=== PATIENT | male | born 1960 | race Caucasian/White ===

== ENCOUNTER → 2016-12-08 | Outpatient (CLI) | payer OTHER ==
--- NOTE | 2016-12-08 11:35 | ECHOF ---
Referral Reason:R07.1 chest pain MEASUREMENTS -------- HEIGHT: 182.9 cm WEIGHT: 104.3 kg BP: RVIDd: 3.8 cm (< 3.3) IVSd: 1.1 cm (0.6 - 1.1) LVIDd: 5.3 cm (3.9 - 5.3) LVPWd: 0.9 cm (0.6 - 1.1) IVSs: 1.3 cm LVIDs: 3.7 cm LVPWs: 1.5 cm LA Diam: 3.5 cm (2.7 - 3.8) LAESV Index (A-L): 23.28 ml/m Ao Diam: 3.3 cm (2.0 - 3.7) AV Cusp: 2.4 cm (1.5 - 2.6) LA Diam: 4.0 cm (2.7 - 3.8) MV EXCURSION: 22.213 mm (> 18.000) MV EF SLOPE: 114 mm/s (70 - 150) EPSS: 0.7 cm MV E Nakul: 0.65 m/s MV DecT: 236 ms MV A Nakul: 0.59 m/s MV E/A Ratio: 1.12 FINDINGS -------- Sinus rhythm. This was a technically good study. There is mild concentric left ventricular hypertrophy. Overall left ventricular systolic function is low-normal with, an EF between 50 - 55 %. The right ventricle is normal in size. Normal LA size by volume 22+/-6 ml/m2. The right atrial size is normal. There is mild aortic valve sclerosis. There is no evidence of aortic regurgitation. Mild mitral annular calcification present. Mild mitral regurgitation is present. Mild tricuspid regurgitation present. Right ventricular systolic pressure is normal at < 35 mmHg. There is no evidence of pulmonary hypertension. There is no pulmonic regurgitation present. The aortic root size is normal. There is no pericardial effusion. CONCLUSIONS -------- 1. There is mild concentric left ventricular hypertrophy. 2. Overall left ventricular systolic function is low-normal with, an EF between 50 - 55 %. 3. There is mild aortic valve sclerosis. 4. Mild mitral annular calcification present. 5. Mild mitral regurgitation is present. 6. Mild tricuspid regurgitation present. 7. Right ventricular systolic pressure is normal at < 35 mmHg. 8. There is no evidence of pulmonary hypertension. PACKAGE LIFT OPERATOR: Katina Holden RDCS
--- NOTE | 2016-12-08 11:39 | EST ---
DATE OF SERVICE: 12/08/2016 AGE: 56Y SEX: M HT: 5'11" WT: 230 lbs. Protocol Cecil: X Other: Cardiolite Stress Stage: 3 Dur. of Exercise: 9:00 *Heart Rate Blood Pressure *Rest: 68 Rest: 106/78 * *Max. Achieved: 145 Maximum BP: 192/79 85% PMHR: 141 100% PMHR: 166 *METS: 10.3 INDICATIONS: Chest pain. MEDICATIONS: Flexeril, [place], Flonase, probiotics. CLINICAL INFORMATION: History of chest pain on and off, family history of coronary artery disease. Resting ECG shows sinus rhythm, rate of 68 beats per minute, DE interval of 0.16, QRS of 0.08, normal ST-T waves. Utilizing a standard Cecil protocol, a symptom-limited treadmill test was performed. Patient exercised for total of 9 minutes, attained a peak heart rate of 145 beats per minute, which is approximately 87% predicted maximal heart rate with some mild chest pain without any EKG changes or ST segment deviations or cardiac arrhythmias. IMPRESSION: 1. Baseline rhythm is sinus with normal DE intervals, normal QRS, normal ST-T waves. 2. Negative exercise treadmill test at 87% predicted maximum heart rate. Patient did complain of mild chest pain without any ST segment deviations, subsided spontaneously. 3. Nuclear scintigrams to follow from Radiology Department.
--- NOTE | 2016-12-08 11:59 | NM ---
EXAMINATION TYPE: NM stress cardiolite complete DATE OF EXAM: 12/08/2016 10:38 AM COMPARISON: NONE HISTORY: 56-year-old male with chest pain TECHNIQUE: After the intravenous administration of 11 mCi Tc 99m Sestamibi - Rest images obtained 45 minutes post injection. The patient exercised using a KAY protocol and 1 minute prior to peak ex ercise was injected with 27.5 mCi Tc 99m Sestamibi - Stress images obtained 10 minutes post injection . FINDINGS: Targeted heart rate was achieved during performance of the study. Review of stress and rest SPECT jagjit ges demonstrates no distinct perfusion abnormality. Gated analysis shows normal wall motion with an estimated left ventricular ejection fraction of 64 %. TID is calculated at 0.89, within normal limit s. Polar maps are normal. IMPRESSION: No scintigraphic evidence for reversible ischemia
== END | disposition home or self-care (01) ==
LOC: RADNMMAIN 08:40
PROVIDERS: ATTEND Family Medicine
DX: R07.1 Chest pain on breathing (principal)
CPT/HCPCS: 93017; 93306; 78452; A9500

== ENCOUNTER 2020-01-27 07:48 | Day surgery (SDC) | payer MEDICARE, OTHER ==
[2020-01-22 16:16] VITALS: BMI 32.1
[~2020-01-27 07:48] MED LIST: LACTATED RINGERS 1,000 ML IV SCH
[2020-01-27 08:08] VITALS: TEMP 97.6
[2020-01-27] MEDS ORDERED: PROPOFOL 10 MG/ML 20 ML VIAL IV ONE (08:52)
[2020-01-27] MEDS ORDERED: LIDOCAINE 1% INJ 10MG/ML (20 ML MDV) ONE (08:52)
--- NOTE | 2020-01-27 09:01 | P.GSHP ---
History of Present Illness H&P Date: 01/27/20 Chief Complaint: GERD, constipation This a 59-year-old male referred from Dr. Jovel. Patient issues with GERD and contents patient. He presents today for EGD and colonoscopy. Past Medical History Past Medical History: GERD/Reflux Additional Past Medical History / Comment(s): BACK ISSUES History of Any Multi-Drug Resistant Organisms: None Reported Past Surgical History: Cholecystectomy, Hernia Repair Additional Past Surgical History / Comment(s): HIATAL HERNIA REPAIR Past Anesthesia/Blood Transfusion Reactions: No Reported Reaction Smoking Status: Never smoker - Past Family History Mother Family Medical History: No Reported History Medications and Allergies Home Medications Medication Instructions Recorded Confirmed Type Cyclobenzaprine [Flexeril] 10 mg PO TID PRN 02/22/16 01/27/20 History HYDROcodone/APAP 10-325MG [[place] 1 tab PO Q4HR PRN 02/22/16 01/27/20 History 10-325] Dicyclomine [Bentyl] 20 mg PO TID PRN 03/02/16 01/27/20 History Ibuprofen [Motrin] 800 mg PO DAILY PRN 01/22/20 01/27/20 History Allergies Allergy/AdvReac Type Severity Reaction Status Date / Time No Known Allergies Allergy Verified 01/27/20 08:09 Surgical - Exam Vital Signs Temp Pulse Resp BP Pulse Ox 97.6 F 69 16 110/73 98 01/27/20 08:07 01/27/20 08:07 01/27/20 08:07 01/27/20 08:07 01/27/20 08:07 - General well developed, well nourished, no distress - Eyes PERRL - ENT normal pinna - Neck no masses - Respiratory normal expansion - Cardiovascular Rhythm: regular - Abdomen Abdomen: soft, non tender Assessment and Plan Assessment: GERD, constipation. We'll perform EGD and colonoscopy.
[2020-01-27 09:43] VITALS: BP 116/77; PULSE 90; RESP 17
--- NOTE | 2020-02-11 09:44 | P.OP ---
Date of Procedure: 01/27/20 Preoperative Diagnosis: GERD Constipation Postoperative Diagnosis: Antral gastritis Esophagitis Possible mild proctitis Procedure(s) Performed: EGD Colonoscopy Anesthesia: MAC Surgeon: Jim Mao Pathology: other (Antrum, esophagus, rectum) Condition: stable Disposition: PACU Description of Procedure: The patient's placed on the endoscopy table lateral position. He received IV sedation. The gastroscope was oropharynx and passed in the esophagus into the stomach. Scope was then placed through the pylorus. The first and second portion of the duodenum appeared normal. The scope was then brought back the antrum and this appeared mildly inflamed. A biopsies performed. The scope was retroflexed and remainder of the stomach appeared normal. The GE junction was at 40 cm the proximal esophagus. Normal. Scope was withdrawn for patient. s. The distal esophagus appeared mildly inflamed and a biopsies performed. The proximal esophagus was normal. Scope was withdrawn for patient. Next digital rectal exam was performed which revealed some minimal internal hemorrhoids. Flexible colonoscope was then placed patient anus and passed throughout the entire colon. The ileocecal valve was visually is. The cecum, ascending and transverse colon appeared normal. The descending and sigmoid colon appeared normal. In the rectum appeared to be some minimal inflammation this area is biopsied. The scope was withdrawn for patient.
== END 2020-01-27 10:11 | disposition home or self-care (01) ==
LOC: ORWHC2ENDO 07:48
PROVIDERS: ATTEND Surgery
DX: K29.50 Unspecified chronic gastritis without bleeding (principal); K21.0 Gastro-esophageal reflux disease with esophagitis; K62.89 Other specified diseases of anus and rectum; K64.8 Other hemorrhoids; K59.00 Constipation, unspecified; Z90.49 Acquired absence of other specified parts of digestive tract; Z98.890 Other specified postprocedural states; Z87.19 Personal history of other diseases of the digestive system
CPT/HCPCS: 88305; 45380; 43239; J2001; J2704

== ENCOUNTER → 2020-07-20 | Outpatient (CLI) | payer MEDICARE ==
--- NOTE | 2020-07-21 07:00 | US ---
EXAMINATION TYPE: US axilla RT DATE OF EXAM: 07/20/2020 COMPARISON: CT 2016 CLINICAL HISTORY: M79.661 PAIN IN RT UPPER ARM. Intermittent pain in upper right flank Right flank: superficial 0.4cm area with posterior shadowing seen at patient's area of pain IMPRESSION: Shadowing 3 to 4 mm subcutaneous lesion could reflect calcification or foreign body. No obvious subcutaneous lesion noted on 2016 CT. Has there been history of interval penetrating trauma o r injury? Repeat CT may be beneficial.
== END | disposition home or self-care (01) ==
LOC: RADUSWWP 16:11
PROVIDERS: ATTEND Family Medicine
DX: L98.9 Disorder of the skin and subcutaneous tissue, unspecified (principal)
CPT/HCPCS: 76705

== ENCOUNTER 2020-09-25 18:26 | Emergency (ER) | payer MEDICARE ==
[2020-09-25] MEDS ORDERED: SODIUM CHLORIDE 0.9% 1,000 ML IV ONE (20:31)
[2020-09-25] MEDS ORDERED: HYDROmorphone 1 MG/ML 1 ML SYRINGE IVP STA (20:33)
[2020-09-25] MEDS ORDERED: ONDANSETRON 4 MG/2 ML VIAL IVP STA (20:33)
[2020-09-25 20:41] LABS: Basophils % (A) 0 %; Eosinophils # (A) 0.1 k/uL (0-0.7); Eosinophils % (A) 1 %; HCT 49.2 % (39.0-53.0); HGB 15.8 gm/dL (13.0-17.5); Lymphocytes % (A) 11 %; MCH 30.8 pg (25.0-35.0); MCHC 32.2 g/dL (31.0-37.0); MCV 95.8 fL (80.0-100.0); Mean Platelet Volume 6.6; Monocytes # (A) 0.2 k/uL (0-1.0); Monocytes % (A) 2 %; Neutrophils # (A) 8.3 k/uL (1.3-7.7); Neutrophils % (A) 86 %; Platelet Count 295 k/uL (150-450); RBC 5.14 m/uL (4.30-5.90); RDW 13.1 % (11.5-15.5); WBC 9.7 k/uL (3.8-10.6)
[2020-09-25] MEDS ORDERED: SODIUM CHLORIDE 0.9% 1,000 ML IV SCH (20:45)
[2020-09-25 20:52] LABS: INR 0.9 (<1.2); Partial Thromboplastin Time 22.7 sec (22.0-30.0); Prothrombin Time 9.7 sec (9.0-12.0)
[2020-09-25 20:54] LABS: ALT 20 U/L (4-49); AST 27 U/L (17-59); African American GFR (CKD) >90 (>60 ml/min/1.73 sqM); Albumin 4.9 g/dL (3.5-5.0); Alkaline Phosphatase 96 U/L (38-126); Amylase 49 U/L (30-110); Anion Gap 13 mmol/L; Blood Urea Nitrogen 21 mg/dL (9-20); Calcium 10.9 mg/dL (8.4-10.2); Carbon Dioxide 19 mmol/L (22-30); Chloride 107 mmol/L (98-107); Glucose 101 mg/dL (74-99); Lipase 27 U/L (23-300); Non-African American GFR(CKD) 89 (>60 ml/min/1.73 sqM); Potassium 4.2 mmol/L (3.5-5.1); Sodium 139 mmol/L (137-145); Total Bilirubin 1.3 mg/dL (0.2-1.3); Total Protein 7.8 g/dL (6.3-8.2)
--- NOTE | 2020-09-25 21:22 | CT ---
EXAMINATION TYPE: CT abdomen pelvis w con DATE OF EXAM: 09/25/2020 COMPARISON: 03/02/2016 HISTORY: Abdominal pain post colonoscopy CT DLP: 1333.2 mGycm Automated exposure control for dose reduction was used. CONTRAST: Performed with IV Contrast, patient injected with 100 mL of Isovue 300. Lung bases are clear. There is no pleural effusion. Heart size is normal. There is no pericardial eff usion. There is some fatty infiltration of the liver. Spleen pancreas stomach appear intact. Bile suhail ts are not dilated. There are clips from cholecystectomy. There is no adrenal mass. There is large right-sided renal cortical cysts that measures 7 cm. There i s no hydronephrosis. Delayed images show normal renal excretion. Ureters are not dilated. There is no retroperitoneal adenopathy. Bladder distends smoothly. There is no inguinal hernia. There is no free fluid in the abdomen and pelvis. There is no mesenteric edema. There is no sign of a bowel obstructi on. Appendix is posterior and appears normal. Lumbar vertebra appear intact. There is no compression fracture. Bony pelvis appears intact. IMPRESSION: No acute abnormality of the abdomen pelvis. Right renal cyst increased compared to old exam. No free air.
--- NOTE | 2020-09-25 21:34 | ED ---
Abdominal Pain HPI - General Source: patient, RN notes reviewed, old records reviewed Mode of arrival: ambulatory Limitations: no limitations <Laenn Delgado - Last Filed: 09/26/20 10:42> <Isadora Alvarez - Last Filed: 10/03/20 00:33> - General Chief Complaint: Abdominal Pain Stated Complaint: Post Op Colonoscopy Pain Time Seen by Provider: 09/25/20 20:04 - History of Present Illness Initial Comments: 59 year old male presents with diffuse abdominal pain after EGD and colonoscopy today by Dr. Mao. Pt reports after colonoscopy in [place] pt had similiar pains. Pt complains of nausea. Pt reports to passing gas after procedure. Pt arrives moaning and writhing in pain. (Leann Delgado) - Related Data Home Medications Medication Instructions Recorded Confirmed Cyclobenzaprine [Flexeril] 10 mg PO TID PRN 02/22/16 09/25/20 HYDROcodone/APAP 10-325MG [[place] 1 tab PO Q4HR PRN 02/22/16 09/25/20 10-325] Dicyclomine [Bentyl] 20 mg PO TID PRN 03/02/16 09/25/20 Ibuprofen [Motrin] 800 mg PO DAILY PRN 01/22/20 09/25/20 Omeprazole 40 mg PO DAILY 09/23/20 09/25/20 Sucralfate [Carafate] 1 gm PO DAILY 09/23/20 09/25/20 Previous Rx's Medication Instructions Recorded Ondansetron Odt [Zofran Odt] 4 mg PO Q8HR PRN #12 tab 09/25/20 Allergies Allergy/AdvReac Type Severity Reaction Status Date / Time No Known Allergies Allergy Verified 09/25/20 18:59 Review of Systems ROS Other: All systems not noted in ROS Statement are negative. <Leann Delgado - Last Filed: 09/26/20 10:42> ROS Other: All systems not noted in ROS Statement are negative. <Isadora Alvarez - Last Filed: 10/03/20 00:33> ROS Statement: Those systems with pertinent positive or pertinent negative responses have been documented in the HPI. Past Medical History Past Medical History: GERD/Reflux Additional Past Medical History / Comment(s): BACK ISSUES. IBS. BLACK TARRY STOOLS ABOUT 2 WEEKS AGO. BLOATING NAUSEA, ABD PAIN History of Any Multi-Drug Resistant Organisms: None Reported Past Surgical History: Cholecystectomy, Hernia Repair Additional Past Surgical History / Comment(s): HIATAL HERNIA REPAIR. COLONOSCOPY Past Anesthesia/Blood Transfusion Reactions: No Reported Reaction Past Psychological History: No Psychological Hx Reported Smoking Status: Never smoker Past Alcohol Use History: None Reported Past Drug Use History: None Reported - Past Family History Mother Family Medical History: No Reported History <Leann Delgado - Last Filed: 09/26/20 10:42> General Exam Limitations: no limitations General appearance: alert, in no apparent distress Head exam: Present: atraumatic, normocephalic, normal inspection Eye exam: Present: normal appearance, PERRL, EOMI. Absent: scleral icterus, conjunctival injection, periorbital swelling ENT exam: Present: normal exam, mucous membranes moist Neck exam: Present: normal inspection. Absent: tenderness, meningismus, lymphadenopathy Respiratory exam: Present: normal lung sounds bilaterally. Absent: respiratory distress, wheezes, rales, rhonchi, stridor Cardiovascular Exam: Present: regular rate, normal rhythm, normal heart sounds. Absent: systolic murmur, diastolic murmur, rubs, gallop, clicks GI/Abdominal exam: Present: soft, tenderness (diffuse. No guarding.Non rigid. ), normal bowel sounds. Absent: distended, guarding, rebound, rigid Back exam: Present: normal inspection Neurological exam: Present: alert, oriented X3, CN II-XII intact <Guadalupe Delgadoily - Last Filed: 09/26/20 10:42> - General Exam Comments Initial Comments: 59 yo male, moderate discomfort. (Leann Delgado) Course Vital Signs 09/25/20 09/25/20 18:55 22:00 Temperature 99.5 F 98.7 F Pulse Rate 65 80 Respiratory 22 18 Rate Blood Pressure 145/91 129/79 O2 Sat by Pulse 100 99 Oximetry Medical Decision Making - Lab Data Result diagrams: 09/25/20 20:33 09/25/20 20:33 - Radiology Data Radiology results: report reviewed <Leann Delgado - Last Filed: 09/26/20 10:42> - Lab Data Result diagrams: 09/25/20 20:33 09/25/20 20:33 <Isadoar Alvarez - Last Filed: 10/03/20 00:33> - Medical Decision Making 59 year old male with Post colonoscopy and EGD abdominal pain. Pt arrived in moderate discomfort. Given dilaudid and zofran and fluids. Labs were reviewed to be normal. CT scan shows normal abdomen and pelvis, no free air. Discussed likely bowel spasm from gas from colonoscopy. Discussed walking around and to follow up if symptoms persist. (Leann Delgado) I was available for consultation in the emergency department. The history and physical exam were done by the midlevel provider. I was consulted for this patients care. I reviewed the case with the midlevel provider and based on t heir presentation of the patient, I agree with the assessment, medical decision making and plan of care as documented. Chart was dictated using [employer] dictation software. Attempts were made to corre ct any dictation errors however some typographical errors may persist. Patient was seen during a national state of emergency due to the Covid-19 pandemic. (Isadora Alvarez) - Lab Data Lab Results 09/25/20 09/25/20 09/25/20 Range/Units 20:33 20:33 20:33 WBC 9.7 (3.8-10.6) k/uL RBC 5.14 (4.30-5.90) m/uL Hgb 15.8 (13.0-17.5) gm/dL Hct 49.2 (39.0-53.0) % MCV 95.8 (80.0-100.0) fL MCH 30.8 (25.0-35.0) pg MCHC 32.2 (31.0-37.0) g/dL RDW 13.1 (11.5-15.5) % Plt Count 295 (150-450) k/uL Neutrophils % 86 % Lymphocytes % 11 % Monocytes % 2 % Eosinophils % 1 % Basophils % 0 % Neutrophils # 8.3 H (1.3-7.7) k/uL Lymphocytes # 1.0 (1.0-4.8) k/uL Monocytes # 0.2 (0-1.0) k/uL Eosinophils # 0.1 (0-0.7) k/uL Basophils # 0.0 (0-0.2) k/uL PT 9.7 (9.0-12.0) sec INR 0.9 (<1.2) APTT 22.7 (22.0-30.0) sec Sodium (137-145) mmol/L Potassium (3.5-5.1) mmol/L Chloride (98-107) mmol/L Carbon Dioxide (22-30) mmol/L Anion Gap mmol/L BUN (9-20) mg/dL Creatinine (0.66-1.25) mg/dL Est GFR (CKD-EPI)AfAm (>60 ml/min/1.73 sqM) Est GFR (CKD-EPI)NonAf (>60 ml/min/1.73 sqM) Glucose (74-99) mg/dL Calcium (8.4-10.2) mg/dL Total Bilirubin (0.2-1.3) mg/dL AST (17-59) U/L ALT (4-49) U/L Alkaline Phosphatase (38-126) U/L Total Protein (6.3-8.2) g/dL Albumin (3.5-5.0) g/dL Amylase (30-110) U/L Lipase (23-300) U/L Urine Color Yellow Urine Appearance Clear (Clear) Urine pH 6.0 (5.0-8.0) Ur Specific [place] >1.050 H (1.001-1.035) Urine Protein Trace H (Negative) Urine Glucose (UA) Negative (Negative) Urine Ketones 4+ H (Negative) Urine Blood Negative (Negative) Urine Nitrite Negative (Negative) Urine Bilirubin Negative (Negative) Urine Urobilinogen <2.0 (<2.0) mg/dL Ur Leukocyte Esterase Negative (Negative) 09/25/20 Range/Units 20:33 WBC (3.8-10.6) k/uL RBC (4.30-5.90) m/uL Hgb (13.0-17.5) gm/dL Hct (39.0-53.0) % MCV (80.0-100.0) fL MCH (25.0-35.0) pg MCHC (31.0-37.0) g/dL RDW (11.5-15.5) % Plt Count (150-450) k/uL Neutrophils % % Lymphocytes % % Monocytes % % Eosinophils % % Basophils % % Neutrophils # (1.3-7.7) k/uL Lymphocytes # (1.0-4.8) k/uL Monocytes # (0-1.0) k/uL Eosinophils # (0-0.7) k/uL Basophils # (0-0.2) k/uL PT (9.0-12.0) sec INR (<1.2) APTT (22.0-30.0) sec Sodium 139 (137-145) mmol/L Potassium 4.2 (3.5-5.1) mmol/L Chloride 107 (98-107) mmol/L Carbon Dioxide 19 L (22-30) mmol/L Anion Gap 13 mmol/L BUN 21 H (9-20) mg/dL Creatinine 0.95 (0.66-1.25) mg/dL Est GFR (CKD-EPI)AfAm >90 (>60 ml/min/1.73 sqM) Est GFR (CKD-EPI)NonAf 89 (>60 ml/min/1.73 sqM) Glucose 101 H (74-99) mg/dL Calcium 10.9 H (8.4-10.2) mg/dL Total Bilirubin 1.3 (0.2-1.3) mg/dL AST 27 (17-59) U/L ALT 20 (4-49) U/L Alkaline Phosphatase 96 (38-126) U/L Total Protein 7.8 (6.3-8.2) g/dL Albumin 4.9 (3.5-5.0) g/dL Amylase 49 (30-110) U/L Lipase 27 (23-300) U/L Urine Color Urine Appearance (Clear) Urine pH (5.0-8.0) Ur Specific [place] (1.001-1.035) Urine Protein (Negative) Urine Glucose (UA) (Negative) Urine Ketones (Negative) Urine Blood (Negative) Urine Nitrite (Negative) Urine Bilirubin (Negative) Urine Urobilinogen (<2.0) mg/dL Ur Leukocyte Esterase (Negative) - Radiology Data CT abdomen and pelvis shows no signs of intraperitoneal air. CT is negative for acute process. Right renal cyst has increased in size from previous. (Leann Pemberton) Disposition Is patient prescribed a controlled substance at d/c from ED?: No Time of Disposition: 21:50 <Leann Delgado - Last Filed: 09/26/20 10:42> <Daria Alvarezah Vic - Last Filed: 10/03/20 00:33> Clinical Impression: Status post colonoscopy, Abdominal pain Disposition: HOME SELF-CARE Condition: Good Instructions (If sedation given, give patient instructions): Abdominal Pain (ED) Additional Instructions: Please use medication as discussed. Please follow up with family doctor and surgeon if symptoms persist. Please return to the emergency room if your symptoms increase or worsen or for any other concerns. Prescriptions: Ondansetron Odt [Zofran Odt] 4 mg PO Q8HR PRN #12 tab PRN Reason: Nausea Referrals: Shakeel Allred Jr, [Primary Care Provider] - 1-2 days
[2020-09-25] MEDS ORDERED: ONDANSETRON 4 MG ODT STARTER PACK 2 TAB BTL PO STA (21:54)
[2020-09-25 22:02] VITALS: BP 129/79; PULSE 80; RESP 18; TEMP 98.7
[2020-09-25 22:06] LABS: Appearance,Urine Clear (Clear); Bilirubin,Urine Negative (Negative); Blood,Urine Negative (Negative); Color,Urine Yellow; Glucose,Urine (UA) Negative (Negative); Ketones,Urine 4+ (Negative); Leukocyte Esterase,Urine Negative (Negative); Nitrite,Urine Negative (Negative); Protein,Urine Trace (Negative); Urobilinogen,Urine <2.0 mg/dL (<2.0)
[2020-09-25 22:09] LABS: Specific Gravity,Urine >1.050 (1.001-1.035)
== END 2020-09-25 22:01 | disposition home or self-care (01) ==
LOC: EC 18:26
DX: R10.9 Unspecified abdominal pain (principal); R11.0 Nausea; K21.9 Gastro-esophageal reflux disease without esophagitis; Z79.899 Other long term (current) drug therapy; Z90.49 Acquired absence of other specified parts of digestive tract
CPT/HCPCS: 36415; 80053; 82150; 83690; 85025; 85610; 85730; 81003; 74177; 99284; 96374; 96375; 96361; J2405; J1170; S0119; Q9967

== ENCOUNTER → 2020-09-25 | Day surgery (SDC) | payer MEDICARE ==
[2020-09-23 10:43] VITALS: BMI 32.1
[~2020-09-25] MED LIST changes: +LIDOCAINE 1% (10MG/ML) FOR IV START INTRADERMA ONE; +LIDOCAINE 1% INJ 10MG/ML (20 ML MDV) ONE; +MIDAZOLAM 2 MG/2 ML VIAL ONE; +PROPOFOL 10 MG/ML 20 ML VIAL IV ONE; +fentaNYL (PF) 50 MCG/ML 2 ML AMP ONE
[2020-09-25 09:49] VITALS: RESP 18; TEMP 97.9
--- NOTE | 2020-09-25 10:40 | P.GSHP ---
History of Present Illness H&P Date: 09/25/20 Chief Complaint: Change in bowel habits, GI bleed, GERD Is a 59-year-old male been sick for EGD colonoscopy. Patient issues GERD and some intermittent rectal bleeding. He is also change in bowel habits. Past Medical History Past Medical History: GERD/Reflux Additional Past Medical History / Comment(s): BACK ISSUES. IBS. BLACK TARRY STOOLS ABOUT 2 WEEKS AGO. BLOATING NAUSEA, ABD PAIN History of Any Multi-Drug Resistant Organisms: None Reported Past Surgical History: Cholecystectomy, Hernia Repair Additional Past Surgical History / Comment(s): HIATAL HERNIA REPAIR. COLONOSCOPY Past Anesthesia/Blood Transfusion Reactions: No Reported Reaction Smoking Status: Never smoker - Past Family History Mother Family Medical History: No Reported History Medications and Allergies Home Medications Medication Instructions Recorded Confirmed Type Cyclobenzaprine [Flexeril] 10 mg PO TID PRN 02/22/16 09/25/20 History HYDROcodone/APAP 10-325MG [[place] 1 tab PO Q4HR PRN 02/22/16 09/25/20 History 10-325] Dicyclomine [Bentyl] 20 mg PO TID PRN 03/02/16 09/25/20 History Ibuprofen [Motrin] 800 mg PO DAILY PRN 01/22/20 09/25/20 History Omeprazole 40 mg PO DAILY 09/23/20 09/25/20 History Sucralfate [Carafate] 1 gm PO DAILY 09/23/20 09/25/20 History Allergies Allergy/AdvReac Type Severity Reaction Status Date / Time No Known Allergies Allergy Verified 09/25/20 09:52 Surgical - Exam Vital Signs Temp Pulse Resp BP Pulse Ox 97.9 F 68 18 121/84 97 09/25/20 09:47 09/25/20 09:47 09/25/20 09:47 09/25/20 09:47 09/25/20 09:47 - General well developed, well nourished, no distress - Eyes PERRL - ENT normal pinna - Neck no masses - Respiratory normal expansion - Cardiovascular Rhythm: regular - Abdomen Abdomen: soft, non tender Assessment and Plan Assessment: GI bleed, change in bowel habits, GERD. We'll perform EGD and colonoscopy
--- NOTE | 2020-09-25 10:58 | P.OP ---
Date of Procedure: 09/25/20 Preoperative Diagnosis: GERD Change in bowel habits GI bleed Postoperative Diagnosis: Antral gastritis Mild esophagitis Diverticulosis Procedure(s) Performed: EGD Colonoscopy Anesthesia: MAC Surgeon: Jim Mao Pathology: other (Antrum, esophagus) Condition: stable Disposition: PACU Description of Procedure: The patient's placed on the endoscopy table in the lateral position. He received IV sedation. The gastric oropharynx passed in the esophagus and stomach. Scope was placed through the pylorus. The first and second portion of the duodenum appeared normal. Scope was then brought back the antrum this is biopsied. A biopsies performed. The scope was unretroflexed and remainder stom ach appeared normal. Patient previous hiatal hernia.. The fundoplication wrap appeared to be just below the esophagus. The GE junction was at 40 cm the distal esophagus appeared mildly inflamed a biopsies performed. The proximal esophagus appeared normal. Scope was withdrawn for patient. Next digital rectal exam was performed. The prostate was symmetric without nodules. The flexible colonoscope was then placed patient anus passed throughout the entire colon. The ileocecal valve sutures. The cecum, ascending and transverse colon appeared normal. In the descending and sigmoid colon there is mild diverticular changes scope summer back the rectum and this appeared normal scope of the patient. There is no evidence of any GI bleed. Postop that perhaps any rectal bleeding this due to anal trauma or diverticulosis.
[2020-09-25 11:24] VITALS: BP 138/86; PULSE 66
== END ==
LOC: ORWHC2ENDO 09:09
PROVIDERS: ATTEND Surgery
DX: K57.31 Diverticulosis of large intestine without perforation or abscess with bleeding (principal); K29.51 Unspecified chronic gastritis with bleeding; K21.01 Gastro-esophageal reflux disease with esophagitis, with bleeding; K58.9 Irritable bowel syndrome, unspecified; Z90.49 Acquired absence of other specified parts of digestive tract; Z87.19 Personal history of other diseases of the digestive system; Z98.890 Other specified postprocedural states; Z79.899 Other long term (current) drug therapy
CPT/HCPCS: 88305; 45378; 43239; J2250; J2001; J3010; J2704

== ENCOUNTER 2020-11-15 10:46 | Emergency (ER) | payer MEDICARE ==
[2020-11-15 10:54] VITALS: RESP 18; TEMP 98.3
[2020-11-15] MEDS ORDERED: ORPHENADRINE 30 MG/ML 2 ML VIAL IM STA (11:16)
[2020-11-15] MEDS ORDERED: KETOROLAC 15 MG/ML 1 ML VIAL IM STA (11:16)
--- NOTE | 2020-11-15 11:33 | XR ---
EXAMINATION TYPE: XR lumbar spine 2 or 3V DATE OF EXAM: 11/15/2020 Comparison: None Clinical History: 60-year-old male with pain Findings: Cholecystectomy clips. 5 lumbar type vertebral bodies. Mild degenerative disc disease mid to lower th oracic spine along with hypertrophic facet arthropathy. Grade 1 anterolisthesis at L5-S1. Vertebral b [place] are preserved. Impression: Mild degenerative disc disease mid to lower lumbar spine. Facet arthropathy lower lumbar spine. Degen erative grade 1 anterolisthesis at L5-S1. No vertebral compression collapse.
--- NOTE | 2020-11-15 11:35 | ED ---
General Adult HPI - General Chief complaint: Back Pain/Injury Stated complaint: Back Pain Time Seen by Provider: 11/15/20 10:56 Source: patient, RN notes reviewed Mode of arrival: ambulatory Limitations: no limitations - History of Present Illness Initial comments: 60-year-old male with a past medical history of chronic back pain presents to the emergency room for a chief complaint of worsening back pain. Patient reports that this is his chronic back pain however is worse than normal. States he usually takes Marshall for this but it does not seem to be helping. He denies radiating pain down his legs. Denies any weakness of his lower extremities. Denies numbness or tingling in the groin or buttock. Denies bladder or bowel changes. Denies fevers or chills. Patient denies any recent injuries.Patient has no other complaints at this time including shortness of breath, chest pain, abdominal pain, nausea or vomiting, headache, or visual changes. - Related Data Home Medications Medication Instructions Recorded Confirmed Cyclobenzaprine [Flexeril] 10 mg PO TID PRN 02/22/16 09/25/20 HYDROcodone/APAP 10-325MG [Marshall 1 tab PO Q4HR PRN 02/22/16 09/25/20 10-325] Dicyclomine [Bentyl] 20 mg PO TID PRN 03/02/16 09/25/20 Ibuprofen [Motrin] 800 mg PO DAILY PRN 01/22/20 09/25/20 Omeprazole 40 mg PO DAILY 09/23/20 09/25/20 Sucralfate [Carafate] 1 gm PO DAILY 09/23/20 09/25/20 Previous Rx's Medication Instructions Recorded Ondansetron Odt [Zofran Odt] 4 mg PO Q8HR PRN #12 tab 09/25/20 Allergies Allergy/AdvReac Type Severity Reaction Status Date / Time No Known Allergies Allergy Verified 11/15/20 10:54 Review of Systems ROS Statement: Those systems with pertinent positive or pertinent negative responses have been documented in the HPI. ROS Other: All systems not noted in ROS Statement are negative. Past Medical History Past Medical History: GERD/Reflux Additional Past Medical History / Comment(s): BACK ISSUES. IBS History of Any Multi-Drug Resistant Organisms: None Reported Past Surgical History: Cholecystectomy, Hernia Repair Additional Past Surgical History / Comment(s): HIATAL HERNIA REPAIR. COLONOSCOPY Past Anesthesia/Blood Transfusion Reactions: No Reported Reaction Past Psychological History: No Psychological Hx Reported Smoking Status: Never smoker Past Alcohol Use History: None Reported Past Drug Use History: None Reported - Past Family History Mother Family Medical History: No Reported History General Exam Limitations: no limitations General appearance: alert, in no apparent distress Head exam: Present: atraumatic, normocephalic, normal inspection Eye exam: Present: normal appearance, PERRL, EOMI. Absent: scleral icterus, conjunctival injection, periorbital swelling ENT exam: Present: normal exam, mucous membranes moist Neck exam: Present: normal inspection, full ROM. Absent: tenderness, meningismus, lymphadenopathy Respiratory exam: Present: normal lung sounds bilaterally. Absent: respiratory distress, wheezes, rales, rhonchi, stridor Cardiovascular Exam: Present: regular rate, normal rhythm, normal heart sounds. Absent: systolic murmur, diastolic murmur, rubs, gallop, clicks GI/Abdominal exam: Present: soft, normal bowel sounds. Absent: distended, tenderness, guarding, rebound, rigid Extremities exam: Present: other (Sensation is intact throughout lower extremities.) Back exam: Absent: vertebral tenderness Neurological exam: Present: normal gait (Patient able to ambulate.) Course Vital Signs 11/15/20 11/15/20 10:52 12:24 Temperature 98.3 F 98.3 F Pulse Rate 66 62 Respiratory 18 18 Rate Blood Pressure 127/79 100/81 O2 Sat by Pulse 97 98 Oximetry Medical Decision Making - Medical Decision Making Vitals are stable. HPI and physical exam as documented. Patient presents for acute on chronic back pain. No red flag symptoms. X-ray shows mild degenerative disc disease mid to lower lumbar spine. Degenerative grade 1 anterolisthesis at L5-S1 without vertebral compression clots. Patient was given Toradol and Norflex and had significant improvement in pain. He takes Marshall at home that he can continue. He was given orthopedic follow-up as he does not currently follow with a specialist. If he has any worsening symptoms he will return here to the emergency room. Disposition Clinical Impression: Chronic low back pain Disposition: HOME SELF-CARE Condition: Good Instructions (If sedation given, give patient instructions): Acute Low Back Pain (ED), Lower Back Exercises (ED) Additional Instructions: Please take your prescribed medications for pain. Please do low back exercises. Follow up with your doctor in orthopedics. You may need additional MRI. If you have any worsening symptoms such as bladder or bowel changes, numbness or tingling in the groin or buttock, weakness of the lower extremities, worse fever return to the emergency room. Is patient prescribed a controlled substance at d/c from ED?: No Referrals: Shakeel Allred Jr, DO [Primary Care Provider] - 1-2 days Juan Palafox DO [Doctor of Osteopathic Medicine] - 1-2 days Time of Disposition: 12:15
[2020-11-15 12:24] VITALS: BP 100/81; PULSE 62
== END 2020-11-15 12:25 | disposition home or self-care (01) ==
LOC: EC 10:46
DX: G89.29 Other chronic pain (principal); M51.36 Other intervertebral disc degeneration, lumbar region; M54.5 Low back pain; K21.9 Gastro-esophageal reflux disease without esophagitis; K58.9 Irritable bowel syndrome, unspecified; Z79.899 Other long term (current) drug therapy; Z90.49 Acquired absence of other specified parts of digestive tract; Z98.890 Other specified postprocedural states
CPT/HCPCS: 72100; 96372 ×2; 99283; J2360; J1885

== ENCOUNTER → 2021-07-20 | Outpatient (CLI) | payer MEDICARE ==
--- NOTE | 2021-07-20 08:20 | MR ---
MRI CERVICAL SPINE: CLINICAL HISTORY: Headache with burning neck pain radiating into shoulders. Right hand and finger num bness. TECHNIQUE: Multiplanar, multisequence imaging of the cervical spine is performed without IV contrast. COMPARISON: None. FINDINGS: Sagittal images of the cervical spine show the craniocervical junction to appear within nor mal limits. The cervical and upper thoracic spinal cord is normal in course, caliber, and signal. V ertebral alignment is anatomic. The vertebral body and intravertebral disk heights are normal. The bone marrow signal intensity is within normal limits. Axial images show C2-C3 level to appear within normal limits. Axial images at C3-C4 level show uncovertebral facet degenerative changes causing mild left-sided esther ral foraminal narrowing. Axial images at C4-C5 level from uncovertebral facet degenerative changes causing mild to moderate le ft greater than right bilateral neural foraminal narrowing. Axial images at C5-C6 level show uncovertebral facet degenerative changes bilaterally. There is focal left paracentral/foraminal disc protrusion effacing anterolateral thecal sac, there is [id number] ate right and moderate to borderline severe left-sided neural foraminal narrowing. Axial images at C6-C7 level and C7-T1 levels appear within normal limits. IMPRESSION: Multilevel degenerative changes greatest at C5-C6 level as detailed above.
== END | disposition home or self-care (01) ==
LOC: RADMRIMAIN 07:19
PROVIDERS: ATTEND Family Medicine
DX: M50.31 Other cervical disc degeneration, high cervical region (principal); M50.122 Cervical disc disorder at C5-C6 level with radiculopathy
CPT/HCPCS: 72141